=== PATIENT | female | born 1970 | race Two or more races ===

== ENCOUNTER 2023-11-15 08:20 | Outpatient (CLI) | payer OTHER | END 2023-11-15 08:36 | disposition home or self-care (01) | LOC: MRI 08:20 | PROVIDERS: ATTEND Specialist | DX: M06.4 Inflammatory polyarthropathy (principal); M65.841 Other synovitis and tenosynovitis, right hand; M65.842 Other synovitis and tenosynovitis, left hand | CPT/HCPCS: 73223; Q9965; 73221 ==